=== PATIENT | male | born 1965 | race Caucasian/White ===

== ENCOUNTER 2017-11-07 21:43 | Emergency (ER) ==
[2017-11-07 22:13] VITALS: BP 144/86; TEMP 98.9; BMI 33.5
[2017-11-07] MEDS ORDERED: ZOFRAN 4 MG/2 ML IVP STA (22:26)
[2017-11-07] MEDS ORDERED: MORPHINE 4 MG/ML SYRINGE ONE (22:32)
[2017-11-07] MEDS: MORPHINE 4 MG/ML VIAL IVP STA ×2 (22:41→22:44)
--- NOTE | 2017-11-07 22:41 | CT ---
EXAM: CT head without contrast. HISTORY: Headache. PROCEDURE: Contiguous axial CT images of the head without contrast with coronal and sagittal reforma ts. FINDINGS: There is mild diffuse cerebral atrophy. The ventricles and basal cisterns are normal in si ze and configuration. No evidence of mass or midline shift. No intracranial hemorrhage or evidence of new large vessel infarct. There is an old left lacunar infarct. No extra-axial fluid collection. T he paranasal sinuses and mastoid air cells are well-aerated and normal in appearance. Impression: No intracranial hemorrhage or evidence of large vessel infarct. Old left lacunar infarct. Mild diffuse cerebral atrophy.
--- NOTE | 2017-11-07 23:28 | ED.PDOC ---
General ED Provider: Dr. LEE MENDIETA Chief Complaint: Earache Stated Complaint: Patient is a 52 year old who comes to the ER with one day history of posterior Auricular pain on the right. it Comes and goes and describes it as a shotting pain.. Had mild headache with it but headache is gone. Denies any pain with chewing. Has never had this before. Time Seen by Physician: 23:26 Mode of Arrival: Walk-In Information Source: Patient Primary Care Provider: DAKOTA TURNER Nursing and Triage Documentation Reviewed and Agree: Yes Reviewed sepsis parameters & appropriate labs ordered?: No System Inflammatory Response Syndrome: Pulse >90 BPM Sepsis Protocol: For patient's 13 years and over: Temp is 96.8 and below OR 101 and greater Pulse >90 BPM Resp >20/minute Acutely Altered Mental Status Are patient's symptoms suggestive of a new infection, such as: -Pneumonia -Skin, Soft Tissue -Endocarditis -UTI -Bone, Joint Infection -Implantable Device -Acute Abdominal Infection -Wound Infection -Meningitis -Blood Stream Catheter Infection -Unknown System Inflammatory Response Syndrome: Not Applicable Review of Systems - Review Of Systems Constitutional: Reports: No symptoms Eyes: Reports: No symptoms Ears, Nose, Mouth, Throat: Reports: Ear pain, Mouth pain Respiratory: Reports: No symptoms Cardiac: Reports: No symptoms GI: Reports: No symptoms : Reports: No symptoms Musculoskeletal: Reports: No symptoms Skin: Reports: No symptoms Neurological: Reports: No symptoms Endocrine: Reports: No symptoms Hematologic/Lymphatic: Reports: No symptoms All Other Systems: Reviewed and Negative Past Medical History - Past Medical History Endocrine: Reports: None Cardiovascular: Reports: None Respiratory: Reports: None Hematological: Reports: None Gastrointestinal: Reports: Diverticulitis Genitourinary: Reports: None Neuro/Psych: Reports: None Musculoskeletal: Reports: None Cancer: Reports: None - Surgical History General Surgical History: Reports: Orthopedic (neck and Ankle with plates. ) - Family History Family History: Reports: None - Social History Smoking Status: Former smoker Hx Substance Use: No Alcohol Screening: None - Immunizations Tetanus Shot up to Date: (UNKNOWN) Physical Exam - Physical Exam Appearance: Ill-appearing, Obese Ill-appearing: Moderate Pain Distress: Severe Eyes: ROGER, EOMI, Conjunctiva clear ENT: Ears normal, Nose normal, Oropharynx normal Neck: Supple Respiratory: Airway patent, Breath sounds clear, Breath sounds equal, Respirations nonlabored Cardiovascular: RRR, Pulses normal, No rub, No murmur GI/: Soft, Nontender, No masses, Bowel sounds normal, No Organomegaly Musculoskeletal: Normal strength, ROM intact, No edema, No calf tenderness Skin: Warm, Dry, Normal color Neurological: Sensation intact, Motor intact, Reflexes intact, Cranial nerves intact, Alert, Oriented Psychiatric: Anxious Interpretation - Radiology Interpretation Radiology Interpretation By: Radiologist Radiology Results: No acute changes Exam Interpreted: CT Scan (old left lacuna infact ) - EKG Interpretation Time of EKG #1: 22:13 Rate: Normal Rhythm: Sinus Ectopy: None [place]: NL ST Segment: Normal Interpretation: Normal EKG Critical Care Note - Critical Care Note Total Time (mins): 0 Course - Course Hematology/Chemistry: 11/07/17 22:15 11/07/17 22:15 Orders, Labs, Meds: Lab Review 11/07/17 11/07/17 22:15 22:15 WBC 7.32 RBC 5.12 Hgb 15.4 Hct 43.3 MCV 84.6 MCH 30.1 MCHC 35.6 H RDW Coeff of Sally 12.5 Plt Count 235 Immature Gran % (Auto) 0.1 Neut % (Auto) 71.7 Lymph % (Auto) 21.3 Mower % (Auto) 5.6 Eos % (Auto) 1.2 Baso % (Auto) 0.1 Immature Gran # (Auto) 0.0 Neut # (Auto) 5.2 Lymph # (Auto) 1.6 Mower # (Auto) 0.4 Eos # (Auto) 0.1 Baso # (Auto) 0.0 Sodium 139 Potassium 3.5 Chloride 107 Carbon Dioxide 20 L Anion Gap 15.5 BUN 16 Creatinine 0.97 Estimated GFR (MDRD) 81.00 BUN/Creatinine Ratio 16.49 Glucose 119 H Calcium 8.8 Total Bilirubin 0.5 AST 23 ALT 33 Alkaline Phosphatase 65 Total Creatine Kinase 90 Troponin I < 0.0100 Total Protein 7.3 Albumin 3.7 Globulin 3.6 Albumin/Globulin Ratio 1.03 Orders Category Date Time Status EKG-(ED ONLY) Stat CARDIO 11/07/17 22:09 Completed ED IV/MEDIPORT/POWERPORT .ONCE EMERGENCY 11/07/17 22:08 Active ED IV/MEDIPORT/POWERPORT .ONCE EMERGENCY 11/07/17 22:22 Active CBC W/ AUTO DIFF Stat LAB 11/07/17 22:15 Completed COMPREHENSIVE METABOLIC PANEL Stat LAB 11/07/17 22:15 Completed CREATINE KINASE Stat LAB 11/07/17 22:15 Completed TROPONIN I Stat LAB 11/07/17 22:15 Completed 0.9 % Sodium Chloride [Saline Flush] MEDS 11/07/17 22:08 Ordered 1 syr IVF PRN PRN 0.9 % Sodium Chloride [Saline Flush] MEDS 11/07/17 22:22 Ordered 1 syr IVF PRN PRN Morphine Sulfate [Morphine 4 mg/ml Syringe] MEDS 11/07/17 22:32 Discontinued 4 mg .ROUTE .STK-MED ONE Morphine Sulfate [Morphine 4 mg/ml Vial] MEDS 11/07/17 22:22 Discontinued 4 mg IVP ONCE STA Ondansetron HCl/Pf [Zofran 4 mg/2 ml] MEDS 11/07/17 22:26 Discontinued 4 [address] IVP ONCE STA CT HEAD W/O CONTRAST Stat RADS 11/07/17 22:10 Completed Medications Generic Name Dose Route Start Last Admin Trade Name Freq PRN Reason Stop Dose Admin Sodium Chloride 1 syr 11/07/17 22:08 11/07/17 22:43 Saline Flush IVF 1 syr PRN PRN Administration To flush IV Sodium Chloride 1 syr 11/07/17 22:22 Saline Flush IVF PRN PRN To flush IV Discontinued Medications Generic Name Dose Route Start Last Admin Trade Name Freq PRN Reason Stop Dose Admin Morphine Sulfate 4 mg 11/07/17 22:22 11/07/17 22:44 Morphine 4 Mg/Ml Vial IVP 11/07/17 22:23 Not Given ONCE STA Ondansetron HCl 4 mg 11/07/17 22:26 11/07/17 22:35 Zofran 4 Mg/2 Ml IVP 11/07/17 22:27 4 mg ONCE STA Administration Vital Signs: Temp Pulse Resp BP Pulse Ox 11/07/17 21:46 98.9 F 102 H 20 144/86 H 96 Departure - Departure Time of Disposition: 23:41 Disposition: HOME SELF-CARE Discharge Problem: Trigeminus neuralgia Instructions: Trigeminal Neuralgia (ED) Condition: Stable Pt referred to PMD for follow-up: Yes IPMP verified?: No Additional Instructions: Take Medications as prescribed. Follow up with PCP in 2 days Prescriptions: Hydrocodone/Acetaminophen [[place] 5-325 Tablet] 1 tab PO Q6HR PRN #12 tablet PRN Reason: PAIN Methylprednisolone [Medrol Dosepak] 4 mg PO DIRECTED #1 pkg Ondansetron HCl [Zofran Tab] 4 mg PO Q8H PRN #14 tablet PRN Reason: Nausea / Vomiting Allergies/Adverse Reactions: Allergies shellfish derived Adverse Reaction (Verified 11/07/17 21:55) Home Medications: Ambulatory Orders Hydrocodone/Acetaminophen [[place] 5-325 Tablet] 1 tab PO Q6HR PRN #12 tablet 02/17 Methylprednisolone [Medrol Dosepak] 4 mg PO DIRECTED #1 pkg 11/07/17 Ondansetron HCl [Zofran Tab] 4 mg PO Q8H PRN #14 tablet 11/07/17 Disposition Discussed With: Patient, Family
[2017-11-07] MEDS ORDERED: SOLU-MEDROL 125 MG IVP STA (23:40)
== END 2017-11-08 00:12 | disposition home or self-care (01) ==
LOC: ED 21:43
DX: G50.0 Trigeminal neuralgia (principal)
CPT/HCPCS: 36415; 80053; 82550; 84484; 85025; 93005; 93010; 96374; 96375; 99283